=== PATIENT | male | born 1975 | race Caucasian/White ===

== ENCOUNTER 2019-02-01 07:02 | Outpatient (CLI) | payer BC ==
[2019-02-01 07:40] LABS: ALBUMIN/GLOBULIN RATIO 1.3 (1.0-2.2); ALKALINE PHOSPHATASE 61 IU/L (42-121); ALT ALANINE AMINOTRANSFERASE 23 IU/L (10-60); AST ASPARTATE AMINOTRANSFERASE 19 IU/L (10-42); BILIRUBIN,TOTAL 0.5 mg/dL (0.2-1.0); BUN - BLOOD UREA NITROGEN 15 mg/dL (6-20); CARBON DIOXIDE - CO2 26 mmol/L (21-32); CHLORIDE 105 mmol/L (101-111); CHOL/HDL RATIO 6.5 (<5.0); CHOLESTEROL 209 mg/dL; CREATININE 0.8 mg/dL (0.6-1.2); GFR - MDRD 107 (>89); GLUCOSE 116 mg/dL (70-100); HDL CHOLESTEROL 32 mg/dL; LDL CHOLESTEROL,CALCULATED 138 mg/dL; LDL/HDL RATIO 4.3 (<3.6); SODIUM 140 mmol/L (135-145); VLDL CHOLESTEROL 39 mg/dL
== END 2019-02-01 07:03 | disposition home or self-care (01) ==
LOC: LAB 07:02
PROVIDERS: ATTEND Internal Medicine
DX: I10 Essential (primary) hypertension (principal)
CPT/HCPCS: 36415; 80053; 80061; 83721